=== PATIENT | female | born 1955 | race Caucasian/White ===

== ENCOUNTER 2019-01-06 09:55 | Day surgery (SDC) | payer BC ==
[~2019-01-06 09:55] MED LIST: Acetaminophen TAB* 325 MG PO PRN; Buffered Lidocaine 1% SYRIN* 1 ML/SYRINGE INTRADERM ONE; Dexamethasone IV* 4 MG/ML 1 ML (4 MG) IV SLOW PU ONE; DiMENhydriNATE IV* 50 MG/ML VIAL IV PUSH PRN; Famotidine IV* 10 MG/ML 2 ML (20 mg) IV ONE; HYDROcodone/ACETAMIN 5-325 MG* 1 TAB PO PRN; Ketorolac INJ* 30 MG/ML 1 ML VIAL IV PRN; Lactated Ringers 1000 ML Bag* 1,000 ML IV SCH; Naloxone* 0.4 MG/ML 1 ML VIAL IV PRN; fentaNYL* 50 MCG/ML 2 ML VIAL (100 MCG VIAL) IV PRN; oxyCODONE/Acetamin 5/325 MG* TAB PO PRN
[2019-01-06] MEDS ORDERED: Famotidine IV* 10 MG/ML 2 ML (20 mg) ONE (10:45)
[2019-01-06] MEDS ORDERED: Dexamethasone IV* 4 MG/ML 1 ML (4 MG) ONE (10:46)
[2019-01-06] MEDS ORDERED: Midazolam* 1 MG/ML 5 ML VIAL (5 MG) ONE (11:14)
[2019-01-06] MEDS ORDERED: fentaNYL* 50 MCG/ML 2 ML VIAL (100 MCG VIAL) ONE (11:14)
[2019-01-06] MEDS ORDERED: Bupivacaine 0.25% SDV PF* 10 ML VIAL INJ ONE (12:06)
[2019-01-06] MEDS ORDERED: Lidocaine 2% PF * 5 ML VIAL ONE (12:22)
[2019-01-06] MEDS ORDERED: Propofol* 10 MG/ML 20 ML BTL ONE (12:22)
[2019-01-06 13:33] VITALS: BP 124/80
--- NOTE | 2019-01-06 23:56 | OP ---
DATE OF OPERATION: 01/06/19 - [facility] DATE OF : 53 SURGEON: Prudencio Brandt MD [employer] SPECIALIST: EDDA Payne ANESTHESIOLOGIST: Dr. Peters. ANESTHESIA: Local MAC. PRE-OP DIAGNOSIS: Right middle trigger finger. POST-OP DIAGNOSIS: Right middle trigger finger. OPERATIVE PROCEDURE: Right middle trigger finger release. INDICATIONS: Caroline has a trigger finger. We talked about risks and benefits. She wanted to proceed. ESTIMATED BLOOD LOSS: 2 mL. COMPLICATIONS: None. FINDINGS: See above and below. DESCRIPTION OF PROCEDURE: Caroline was seen in the preoperative holding area. The correct site, side, and procedure were identified. We came back to the operating room where the arm was prepped and draped in the usual fashion and time-out was performed. I had injected 0.25% Marcaine on the operative area. The arm was exsanguinated with the Esmarch and the tourniquet was inflated to 250 mmHg. I made a 1 cm incision utilizing the distal palmar crease. Dissection was carried down and full-thickness flaps were bluntly raised off the tendon sheath. The A1 justine was incised along the radial third longitudinally in line with the tendon. The release was completed distally and proximally with the tenotomy scissors. I checked insert, there was no triggering. I did debride off some tenosynovium that was around the tendon. Everything was looking good, so we irrigated out the wound. The skin was closed with 4-0 nylon suture and soft dressings were applied and she was taken to the recovery room in stable condition. [id number]/[facility] #: [id number] [facility]
== END 2019-01-06 13:34 | disposition home or self-care (01) ==
LOC: OR 09:55
PROVIDERS: ATTEND Orthopaedic Surgery Hand Surgery
DX: M65.331 Trigger finger, right middle finger (principal); J45.909 Unspecified asthma, uncomplicated; E78.00 Pure hypercholesterolemia, unspecified; E03.9 Hypothyroidism, unspecified; Z87.891 Personal history of nicotine dependence
CPT/HCPCS: J1100; J2250; J2704; J3010; J3490

== ENCOUNTER 2019-02-20 07:28 | Day surgery (SDC) | payer BC ==
[~2019-02-20 07:28] MED LIST changes: -Acetaminophen TAB* 325 MG PO PRN; -Buffered Lidocaine 1% SYRIN* 1 ML/SYRINGE INTRADERM ONE; -Dexamethasone IV* 4 MG/ML 1 ML (4 MG) IV SLOW PU ONE; -DiMENhydriNATE IV* 50 MG/ML VIAL IV PUSH PRN; -Famotidine IV* 10 MG/ML 2 ML (20 mg) IV ONE; -HYDROcodone/ACETAMIN 5-325 MG* 1 TAB PO PRN; -Ketorolac INJ* 30 MG/ML 1 ML VIAL IV PRN; -Lactated Ringers 1000 ML Bag* 1,000 ML IV SCH; +Lidocaine 1% MPF wEPI 200,000* 30 ML SDV ONE; -Naloxone* 0.4 MG/ML 1 ML VIAL IV PRN; +Sodium Bicarbonate 8.4% IV* 50 ML VIAL ONE; -fentaNYL* 50 MCG/ML 2 ML VIAL (100 MCG VIAL) IV PRN; -oxyCODONE/Acetamin 5/325 MG* TAB PO PRN
[2019-02-20] MEDS ORDERED: Bupivacaine 0.25% SDV PF* 10 ML VIAL INJ ONE (08:33)
[2019-02-20] MEDS ORDERED: Buffered Lidocaine 1% SYRIN* 1 ML/SYRINGE INTRADERM ONE (10:14)
[2019-02-20] MEDS ORDERED: Gabapentin CAP(*) 300 MG PO ONE (10:14)
[2019-02-20] MEDS ORDERED: Acetaminophen TAB* 325 MG PO ONE (10:14)
[2019-02-20] MEDS ORDERED: Lactated Ringers 1000 ML Bag* 1,000 ML IV SCH (11:00)
[2019-02-20] MEDS ORDERED: Gabapentin CAP(*) 300 MG ONE (12:53)
[2019-02-20] MEDS ORDERED: Acetaminophen TAB* 325 MG ONE (12:54)
[2019-02-20] MEDS ORDERED: Levalbuterol 0.63MG/3ML NEB* UNIT OF USE INH PRN (13:07)
[2019-02-20] MEDS ORDERED: Ondansetron INJ* 2 MG/ML VIAL IV PRN (13:07)
[2019-02-20] MEDS ORDERED: diPHENhydraMINE IV* 50 MG/ML 1 ml VIAL (BENADRYL) IV PRN (13:07)
[2019-02-20] MEDS ORDERED: Naloxone* 0.4 MG/ML 1 ML VIAL IV PRN (13:07)
[2019-02-20] MEDS ORDERED: HYDROcodone/ACETAMIN 5-325 MG* 1 TAB PO PRN (13:07)
[2019-02-20] MEDS ORDERED: ceFAZolin 2 GM PREMIX in ORs 2 GM/50 ML BAG ONE (13:30)
[2019-02-20] MEDS ORDERED: fentaNYL* 50 MCG/ML 2 ML VIAL (100 MCG VIAL) ONE ×2 (13:42→15:06)
[2019-02-20] MEDS ORDERED: Propofol* 10 MG/ML 20 ML BTL ONE (13:43)
[2019-02-20] MEDS ORDERED: Midazolam* 1 MG/ML 2 ML VIAL (2 MG) ONE (13:43)
[2019-02-20] MEDS ORDERED: Lidocaine 2% PF * 5 ML VIAL ONE (13:43)
[2019-02-20] MEDS ORDERED: Dexamethasone IV* 4 MG/ML 1 ML (4 MG) ONE (13:43)
[2019-02-20] MEDS ORDERED: Ketorolac INJ* 30 MG/ML 1 ML VIAL ONE (13:43)
[2019-02-20 15:58] VITALS: BP 126/76
--- NOTE | 2019-02-20 20:45 | OP ---
DATE OF OPERATION: 02/20/19 - [facility] DATE OF : 53 SURGEON: Prudencio Brandt MD LEATHER LACER: EDDA Payne ANESTHESIOLOGIST: Dr. Beatty. ANESTHESIA: Local MAC. PRE-OP DIAGNOSIS: Right persistent middle trigger finger. POST-OP DIAGNOSIS: Right persistent middle trigger finger. OPERATIVE PROCEDURE: Excision of right middle finger flexor digitorum superficialis tendon slip. INDICATIONS: Caroline had a trigger finger release by me about a month ago, but the finger is still triggering. I told her that I probably would not be able to get it stop triggering unless we excise the slip of the FDS tendon. She understood and she wished to proceed. We had initially scheduled this as a local, but due to pretty significant anxiety upon arriving to the surgery center , we converted to local MAC. ESTIMATED BLOOD LOSS: 5 mL. COMPLICATIONS: None. FINDINGS: See above and below. DESCRIPTION OF PROCEDURE: Ms. Carnes was seen in the preoperative holding area. The correct site, side, and procedure were identified. We came back to the operating room where the arm was prepped and draped in the usual fashion and time- out was performed. I had initially in anticipation of doing a local only case injected her finger with 1% lidocaine with epinephrine bicarbonate. However, after waiting a few hours for her to achieve adequate n.p.o. status, I then, in the operating room, injected the area with 0.25% plain Marcaine. The arm was exsanguinated and the tourniquet inflated. I went ahead and utilized her prior incision and extended this back proximally in Yash type fashion. Dissection was carried down, the flexor tendons were identified. I confirmed the release of the entirety of A1 justine and flexed the finger down. I noted it to be triggering still. There is nothing actually to release. So, I went ahead and made a V shaped ulnarly based incision over the PIP joint flexion crease. The flexion tendon sheath was opened at the A3 justine. The ulnar slip of the FDS was released with a cloverdale blade. The Camper's chiasm was released. The slip of the FDS was then brought up into the palmar wound where I beveled it off and excised that slip with the cloverdale blade. I freshened up any rough edges. Everything was looking very good. I irrigated out the wound. I went ahead and repaired the tendon sheath out in the finger with some 4-0 Prolene suture. She was having a bit of tourniquet discomfort at this point. So, I let down the tourniquet. The finger pinked up. There was just a little bit of bleeding and so I went ahead and gravity exsanguinated the finger and reinflated the tourniquet and the skin was closed with 4-0 nylon suture. A soft dressing was applied. She was awakened up by the end of case. I had her flex and extend the fingers multiple times and there was no triggering. Everything was looking good. She was taken to the recovery room in stable condition. [id number]/[facility] #: [id number] KESH[facility]
== END 2019-02-20 16:18 | disposition home or self-care (01) ==
LOC: OREAST 07:28
PROVIDERS: ATTEND Orthopaedic Surgery Hand Surgery
DX: M65.331 Trigger finger, right middle finger (principal); J45.909 Unspecified asthma, uncomplicated; E03.9 Hypothyroidism, unspecified
CPT/HCPCS: 88304; A9270-GY; J0690; J1100; J1885; J2001; J2250; J2704; J3010; J3490

== ENCOUNTER 2019-05-27 07:41 | Day surgery (SDC) | payer BC, OTHER ==
[~2019-05-27 07:41] MED LIST changes: +Acetaminophen TAB* 325 MG PO PRN; +Buffered Lidocaine 1% SYRIN* 1 ML/SYRINGE INTRADERM ONE; -Lidocaine 1% MPF wEPI 200,000* 30 ML SDV ONE; -Sodium Bicarbonate 8.4% IV* 50 ML VIAL ONE
[2019-05-27] MEDS ORDERED: Tetracaine 0.5% OPTH.SOL 4 ML* 1 DROP BTL ONE (08:02)
[2019-05-27] MEDS ORDERED: Lidocaine 1% MPF ** 5 ML VIAL ONE (08:02)
[2019-05-27] MEDS ORDERED: Tropicamide 1% OPTH.SOL* BTL ONE (08:02)
[2019-05-27] MEDS ORDERED: Ketorolac 0.5% OPHTH (NF) 0.5 % 5 ML BTL ONE (08:02)
[2019-05-27] MEDS ORDERED: Cyclopentolate 1% OPTH.SOL* 2 ML BTL ONE (08:02)
[2019-05-27] MEDS ORDERED: Phenylephrine OPHTH SOL 2.5%* 2 ML ONE (08:02)
[2019-05-27] MEDS ORDERED: Neomycin/Polymy/Dex OPHTH.OIN* 3.5 GM ONE (08:02)
[2019-05-27] MEDS ORDERED: fentaNYL* 50 MCG/ML 2 ML VIAL (100 MCG VIAL) ONE (08:27)
[2019-05-27] MEDS ORDERED: Midazolam* 1 MG/ML 2 ML VIAL (2 MG) ONE (08:27)
[2019-05-27 10:11] VITALS: BP 118/81
--- NOTE | 2019-05-27 14:22 | OP ---
DATE OF OPERATION: 05/27/19 [facility] DATE OF : 53 SURGEON: Barrie Garcia MD RADIO DIVISION OFFICER: None. ANESTHESIA: Topical with intravenous sedation. PRE-OP DIAGNOSIS: Cataract, glaucoma and astigmatism, right eye. POST-OP DIAGNOSIS: Cataract, glaucoma and astigmatism, right eye. OPERATIVE PROCEDURE: Phacoemulsification and cataract extraction with posterior chamber toric intraocular lens implant and iStent implant, right eye. COMPLICATIONS: None. BLOOD LOSS: None. DESCRIPTION OF PROCEDURE: The patient was brought to the operating room and given intravenous sedation. A drop of tetracaine was placed in her right eye. The patient was prepped and draped in the usual sterile fashion for ophthalmic surgery and attention was directed to the right eye where a speculum was placed. A paracentesis was created at the 11 o'clock position. 0.1 cc of 1% preservative-free lidocaine was injected into the anterior chamber followed by DisCoVisc. The eye was digitally stabilized while a 2.75-mm keratome was used to create a triplanar clear corneal incision at the 9 o'clock position. A continuous curvilinear capsulorrhexis was created with a cystotome and Utrata forceps. BSS on a cannula was used to hydrodissect the lens from the capsule. Phacoemulsification was performed in a cufzqw-pdj-xtlzyop technique to create 4 fragments, which were removed. Residual cortical material was removed with irrigation and aspiration. The capsular bag was polished. Provisc was used to inflate the capsular bag and the eye. The surface of the eye was lubricated. The eye pressure was checked and found to be appropriate to proceed. The ORA device was employed to help guide lens choice. An SN6AT3 19 diopter lens was chosen. The reticle on the ORA helped guide lens alignment. The lens was folded and placed at the 12-degree axis. At this point, supplemental DisCoVisc was used to deepen the anterior chamber and coat the surface of the cornea. The patient's head was rotated away from the surgeon and the microscope was rotated toward the surgeon. A gonioprism was placed on the surface of the eye. An iStent on its wet machine operator was introduced into the anterior chamber. Under direct visualization, the iStent was placed into the nasal trabecular meshwork. The wet machine operator and prism were removed. The head and the microscope were returned to a neutral position. Irrigation and aspiration were performed to remove viscoelastic from the eye. During this maneuver, the lens was stabilized with a Sinskey hook through the paracentesis site. BSS on a cannula was then used to hydrate the corneal stoma and seal the wound. At the end of the case, the pupil was round, the lens was centered. The lens was axially aligned. The iStent was in good position. The eye pressure appeared normal and the wound was watertight. The speculum was removed and topical Maxitrol ointment was placed on the surface of the eye. The eye was closed, patched, and shielded and the patient was sent to the recovery room in stable condition with postoperative instructions and followup appointment given. [id number]/[facility] #: [id number] KESHAV
== END 2019-05-27 10:02 | disposition home or self-care (01) ==
LOC: OREAST 07:41
PROVIDERS: ATTEND Ophthalmology
DX: H25.11 Age-related nuclear cataract, right eye (principal); H40.10X1 Unspecified open-angle glaucoma, mild stage; J45.909 Unspecified asthma, uncomplicated
CPT/HCPCS: A9270-GY; C1783; J2250; J3010; V2787

== ENCOUNTER 2019-06-03 08:33 | Day surgery (SDC) | payer BC, OTHER ==
[~2019-06-03 08:33] MED LIST changes: -Acetaminophen TAB* 325 MG PO PRN
[2019-06-03] MEDS ORDERED: Midazolam* 1 MG/ML 2 ML VIAL (2 MG) ONE (10:15)
[2019-06-03] MEDS ORDERED: fentaNYL* 50 MCG/ML 2 ML VIAL (100 MCG VIAL) ONE (10:15)
[2019-06-03] MEDS ORDERED: Cyclopentolate 1% OPTH.SOL* 2 ML BTL ONE (10:25)
[2019-06-03] MEDS ORDERED: Tetracaine 0.5% OPTH.SOL 4 ML* 1 DROP BTL ONE (10:25)
[2019-06-03] MEDS ORDERED: Tropicamide 1% OPTH.SOL* BTL ONE (10:25)
[2019-06-03] MEDS ORDERED: Lidocaine 1% MPF ** 5 ML VIAL ONE (10:25)
[2019-06-03] MEDS ORDERED: Phenylephrine OPHTH SOL 2.5%* 2 ML ONE (10:25)
[2019-06-03] MEDS ORDERED: Neomycin/Polymy/Dex OPHTH.OIN* 3.5 GM ONE (10:25)
[2019-06-03] MEDS ORDERED: Ketorolac 0.5% OPHTH (NF) 0.5 % 5 ML BTL ONE (10:25)
[2019-06-03] MEDS ORDERED: Propofol* 10 MG/ML 20 ML BTL ONE (10:36)
[2019-06-03 11:00] VITALS: BP 123/83
--- NOTE | 2019-06-03 15:27 | OP ---
DATE OF OPERATION: 06/03/19 [facility] DATE OF : 53 SURGEON: Barrie Garcia MD. INSURANCE LOSS ASSESSOR: None. ANESTHESIA: Topical with intravenous sedation. PRE-OP DIAGNOSIS: Cataract, glaucoma and astigmatism, left eye. POST-OP DIAGNOSIS: Cataract, glaucoma and astigmatism, left eye. OPERATIVE PROCEDURE: Phacoemulsification and cataract extraction with posterior chamber toric intraocular lens implant, left eye and iStent implant, left eye. COMPLICATIONS: None. BLOOD LOSS: None. DESCRIPTION OF PROCEDURE: The patient was brought to the operating room and received intravenous sedation. A drop of tetracaine was placed into her left eye. The patient was prepped and draped in the usual sterile fashion for ophthalmic surgery and attention was directed to the left eye. A speculum was placed. A paracentesis was created at the 5:30 position at the limbus. 0.1 cc of 1% preservative-free lidocaine was injected into the anterior chamber followed by DisCoVisc. The eye was digitally stabilized while a 2.75-mm keratome was used to create a triplanar clear corneal incision at the 3 o'clock position. A continuous curvilinear capsulorrhexis was created using a cystotome and Utrata forceps. BSS on a cannula was used to hydrodissect the lens from the capsule. Phacoemulsification was performed in a wyykeq-peq-yvpupvs technique to create 4 fragments, which were removed. Residual cortical material was removed with irrigation and aspiration. Provisc was used to inflate the capsular bag. The eye pressure was checked and the surface of the eye was lubricated. The ORA device was employed. An SN6AT4 19 diopter lens was chosen. This lens was folded and inserted into the capsular bag. It was dialed to the 160 degree axis. Supplemental DisCoVisc was used to deepen the anterior chamber and coat the surface of the cornea. The patient's head was rotated away from the surgeon and the microscope was rotated towards the surgeon. A gonioprism was placed on the surface of the eye. An iStent on its multicultural manager was introduced into the anterior chamber. Under direct visualization, the iStent was placed in the nasal trabecular meshwork. The multicultural manager and the prism were removed. The patient's head and the microscope were returned to a neutral position. Irrigation and aspiration were performed to remove viscoelastic from the eye while the lens was stabilized through the paracentesis with a Sinskey hook. The Sinskey hook was removed. BSS on a cannula were used to hydrate the corneal stroma and seal the wound. At the end of the case, the pupil was round. The lens was centered, stable, and axially aligned. The iStent was in good position. The eye pressure normal and the wound was watertight. The speculum was removed and topical Maxitrol ointment was placed on the surface of the eye. The eye was closed, patched, and shielded, and the patient was sent to the recovery room in stable condition with postoperative instructions and followup appointment given. [id number]/[facility] #: [id number] KESHAV
== END 2019-06-03 11:11 | disposition home or self-care (01) ==
LOC: OREAST 08:33
PROVIDERS: ATTEND Ophthalmology
DX: H25.12 Age-related nuclear cataract, left eye (principal); H40.1121 Primary open-angle glaucoma, left eye, mild stage; J45.909 Unspecified asthma, uncomplicated; E03.9 Hypothyroidism, unspecified
CPT/HCPCS: A9270-GY; C1783; J2250; J2704; J3010; V2787